=== PATIENT | female | born 1960 | race Caucasian/White ===

== ENCOUNTER 2018-01-22 08:18 | Emergency (ER) | payer MEDICARE, MEDICAID ==
[~2018-01-22] VITALS: Ht 165.1 cm; Wt 77.0 kg
[~2018-01-22 08:18] MED LIST: COMIN IH; FAMO-1 PO; HYDR-3964 PO; TRAZ-89 PO
[2018-01-22 08:26] VITALS: BP 101/67
[2018-01-22 08:49] LABS: CLARITY,URINE CLOUDY (Clear); COLOR,URINE YELLOW (Yellow); GLUCOSE, URINE NEGATIVE (Neg); KETONES,URINE NEGATIVE (Neg); LEUKOCYTE ESTERASE ,URINE LARGE (Neg); NITRITES, URINE POSITIVE (Neg); OCCULT BLOOD,URINE LARGE (Neg); PROTEIN,URINE 30 mg/dl (Neg); UROBILINOGEN,URINE 0.2 E.U/dL (0.2-1.0)
[2018-01-22 08:54] LABS: UA COLLECTION TYPE CLN CATCH MIDSTREAM
[2018-01-22 08:56] LABS: BACTERIA,URINE 2+ /HPF (Neg); MUCUS STRANDS FEW /LPF (Neg); SQUAMOUS EPITHELIAL CELL,UR FEW /LPF (FEW); WBC,URINE 50-100 /HPF (0-4)
[2018-01-22] MEDS ORDERED: SULF1TAB49 PO (09:14)
[2018-01-22] MEDS ORDERED: PHEN-716 PO (09:14)
[2018-01-22] MEDS ORDERED: phenazopyridine 100mg tablet PO ONE (09:25)
== END 2018-01-22 09:53 | disposition home or self-care (01) ==
LOC: ER 08:19
DX: N39.0 Urinary tract infection, site not specified (principal); Z90.49 Acquired absence of other specified parts of digestive tract; Z98.890 Other specified postprocedural states; Z90.710 Acquired absence of both cervix and uterus; Z56.0 Unemployment, unspecified; Z79.899 Other long term (current) drug therapy
CPT/HCPCS: 81001; 87077; 87088; 87186; 99284

== ENCOUNTER 2019-05-25 14:19 | Emergency (ER) | payer MEDICARE, MEDICAID ==
[~2019-05-25] VITALS: Ht 162.6 cm; Wt 59.6 kg
[~2019-05-25 14:19] MED LIST changes: +PHEN-716 PO
[2019-05-25 14:57] LABS: CLARITY,URINE CLOUDY (Clear); COLOR,URINE YELLOW (Yellow); GLUCOSE, URINE NEGATIVE (Neg); KETONES,URINE NEGATIVE (Neg); LEUKOCYTE ESTERASE ,URINE SMALL (Neg); NITRITES, URINE POSITIVE (Neg); OCCULT BLOOD,URINE NEGATIVE (Neg); PH,URINE 5.5 (4.8-8.0); PROTEIN,URINE NEGATIVE (Neg)
[2019-05-25 14:58] LABS: UA COLLECTION TYPE CLN CATCH MIDSTREAM
[2019-05-25 15:03] LABS: MUCUS STRANDS MODERATE /LPF (Neg); SQUAMOUS EPITHELIAL CELL,UR MODERATE /LPF (FEW)
[2019-05-25 15:04] LABS: BACTERIA,URINE 2+ /HPF (Neg); RBC,URINE 0-2 /HPF (0-2); WBC CLUMPS,URINE FEW /HPF (NEGATIVE); WBC,URINE 50-100 /HPF (0-4)
[2019-05-25 15:34] VITALS: BP 143/77
[2019-05-25] MEDS ORDERED: cephalexin 250mg capsule PO ONE (15:55)
[2019-05-25] MEDS ORDERED: HYDROcodone/acetaminophen 10/325mg tab PO ONE (15:55)
[2019-05-25] MEDS ORDERED: CEPH500C5 PO (15:55)
== END 2019-05-25 16:30 | disposition home or self-care (01) ==
LOC: ER 14:20
DX: N39.0 Urinary tract infection, site not specified (principal); M25.552 Pain in left hip; G89.29 Other chronic pain; F17.210 Nicotine dependence, cigarettes, uncomplicated; F12.90 Cannabis use, unspecified, uncomplicated; Z90.49 Acquired absence of other specified parts of digestive tract; Z90.710 Acquired absence of both cervix and uterus; Z98.890 Other specified postprocedural states; Z56.0 Unemployment, unspecified; Z79.2 Long term (current) use of antibiotics; Z79.899 Other long term (current) drug therapy
CPT/HCPCS: 81001; 99283

== ENCOUNTER 2019-10-07 12:49 | Emergency (ER) | payer MEDICARE, MEDICAID ==
[~2019-10-07] VITALS: Ht 162.6 cm; Wt 65.9 kg
[~2019-10-07 12:49] MED LIST changes: +CEPH500C5 PO
[2019-10-07 13:47] LABS: BASOPHILS # (AUTO) 0.1 X10'3 (0-0.2); BASOPHILS % (AUTO) 1.1 % (0-1); EOSINOPHILS # (AUTO) 0.2 X10'3 (0-0.9); EOSINOPHILS % (AUTO) 1.6 % (0-6); HEMATOCRIT 40.1 % (35.0-45.0); HEMOGLOBIN 13.8 g/dl (12.0-16.0); LYMPHOCYTES # (AUTO) 1.6 X10'3 (1.1-4.8); LYMPHOCYTES % (AUTO) 16.8 % (21-51); MEAN CORPUSCULAR HEMOGLOBIN 30.6 PG (27.0-31.0); MEAN CORPUSCULAR HGB CONC 34.4 g/dL (33.0-36.5); MEAN CORPUSCULAR VOLUME 88.8 FL (78-98); MEAN PLATELET VOLUME 7.5 FL (7.4-10.4); MONOCYTES # (AUTO) 0.4 X10'3 (0-0.9); MONOCYTES % (AUTO) 4.7 % (2-12); NEUTROPHILS # (AUTO) 7.1 X10'3 (1.8-7.7); NEUTROPHILS % (AUTO) 75.8 % (42-75); PLATELET COUNT 321 X10'3 (140-440); RED BLOOD COUNT 4.51 X10'6 (4.20-5.60); RED CELL DISTRIBUTION WIDTH 13.2 % (11.5-14.5); WHITE BLOOD COUNT 9.4 X10'3 (4.5-11.0)
[2019-10-07] MEDS ORDERED: ondansetron/PF 4mg/2ml inj IV ONE (13:55)
[2019-10-07] MEDS ORDERED: morphine 4 MG/ML inj SYRINge IV ONE ×2 (13:55→15:55)
[2019-10-07 14:06] LABS: ALANINE AMINOTRANSFERASE 11 U/L (12-78); ALBUMIN 3.7 G/DL (3.4-5.0); ALBUMIN/GLOBULIN RATIO 0.9 (1.1-1.5); ALKALINE PHOSPHATASE 82 IU/L (46-116); ANION GAP 10 (8-16); ASPARTATE AMINO TRANSFERASE 10 U/L (10-37); BILIRUBIN,TOTAL 0.4 MG/DL (0.1-1.0); BLOOD UREA NITROGEN 11 MG/DL (7-18); BUN/CREATININE RATIO 16.4 (6.6-38.0); CALCIUM 9.4 MG/DL (8.5-10.1); CHLORIDE 103 MMOL/L (99-107); CREATININE 0.67 MG/DL (0.40-0.90); GLUCOSE 97 MG/DL (70-104); SODIUM 140 MMOL/L (135-145); TOTAL CARBON DIOXIDE 26.6 MMOL/L (24-32); TOTAL PROTEIN 7.7 G/DL (6.4-8.2); eGFR 89 ML/MIN
[2019-10-07 14:09] LABS: POTASSIUM 4.2 MMOL/L (3.5-5.1)
[2019-10-07] MEDS ORDERED: iohexol 350MG/ML 100ml bottle IV ONE (14:35)
[2019-10-07] MEDS ORDERED: enoxaparin 100mg/ml syringe SUBCUT ONE (15:15)
[2019-10-07] MEDS ORDERED: ketorolac trometh. 30mg/ml inj. IV ONE (15:20)
--- NOTE | 2019-10-07 15:25 | NUR ---
Dr Hernandez made aware of patient stating 10/10 right chest pain, burning, with increased shortness of breath, SPO2 96% on room air, placed on O2 2L via NC for comfort.
[2019-10-07] MEDS ORDERED: ENOX100S3 SQ (15:56)
[2019-10-07 16:12] VITALS: BP 130/72
== END 2019-10-07 16:18 | disposition home or self-care (01) ==
LOC: ER 12:50
DX: I26.99 Other pulmonary embolism without acute cor pulmonale (principal); R91.8 Other nonspecific abnormal finding of lung field; G89.29 Other chronic pain; F17.200 Nicotine dependence, unspecified, uncomplicated; F12.90 Cannabis use, unspecified, uncomplicated; Z90.49 Acquired absence of other specified parts of digestive tract; Z90.710 Acquired absence of both cervix and uterus; Z56.0 Unemployment, unspecified; Z98.890 Other specified postprocedural states; Z79.899 Other long term (current) drug therapy
CPT/HCPCS: 36415; 71045; 71275; 80053; 84484; 85025; 93005; 96372; 96374; 96375; 96376; 99284; J1885; J2270; J2405; Q9967; J1650

== ENCOUNTER 2020-03-13 09:06 | Emergency (ER) | payer MEDICARE, MEDICAID ==
[~2020-03-13] VITALS: Ht 162.6 cm; Wt 53.0 kg
[2020-03-13 11:06] LABS: BASOPHILS # (AUTO) 0.1 X10'3 (0-0.2); BASOPHILS % (AUTO) 0.8 % (0-1); EOSINOPHILS # (AUTO) 0.2 X10'3 (0-0.9); EOSINOPHILS % (AUTO) 2.4 % (0-6); HEMATOCRIT 23.9 % (35.0-45.0); HEMOGLOBIN 8.1 g/dl (12.0-16.0); LYMPHOCYTES # (AUTO) 0.7 X10'3 (1.1-4.8); LYMPHOCYTES % (AUTO) 7.6 % (21-51); MEAN CORPUSCULAR HEMOGLOBIN 31.2 PG (27.0-31.0); MEAN CORPUSCULAR VOLUME 91.9 FL (78-98); MEAN PLATELET VOLUME 6.3 FL (7.4-10.4); MONOCYTES # (AUTO) 0.6 X10'3 (0-0.9); MONOCYTES % (AUTO) 6.8 % (2-12); NEUTROPHILS # (AUTO) 7.7 X10'3 (1.8-7.7); NEUTROPHILS % (AUTO) 82.4 % (42-75); PLATELET COUNT 328 X10'3 (140-440); WHITE BLOOD COUNT 9.4 X10'3 (4.5-11.0)
--- NOTE | 2020-03-13 11:16 | NUR ---
PT'S CALL LIGHT WAS ON, CHECKED ON PT AND SHE WAS SLEEPING, ROOM LIGHTS DIMMED.
[2020-03-13 11:18] LABS: ALANINE AMINOTRANSFERASE 11 U/L (12-78); ALBUMIN 2.3 G/DL (3.4-5.0); ALBUMIN/GLOBULIN RATIO 0.5 (1.1-1.5); ALKALINE PHOSPHATASE 132 IU/L (46-116); ANION GAP 6 (8-16); ASPARTATE AMINO TRANSFERASE 12 U/L (10-37); BILIRUBIN,TOTAL 0.3 MG/DL (0.1-1.0); BLOOD UREA NITROGEN 11 MG/DL (7-18); BUN/CREATININE RATIO 16.9 (6.6-38.0); CALCIUM 9.3 MG/DL (8.5-10.1); CHLORIDE 98 MMOL/L (99-107); CREATININE 0.65 MG/DL (0.40-0.90); GLUCOSE 96 MG/DL (70-104); POTASSIUM 3.8 MMOL/L (3.5-5.1); SODIUM 132 MMOL/L (135-145); TOTAL CARBON DIOXIDE 28.4 MMOL/L (24-32); TOTAL PROTEIN 6.9 G/DL (6.4-8.2); eGFR > 90 ML/MIN
[2020-03-13] MEDS ORDERED: acetaminophen w/codeine (30MG) #3 tablet PO ONE (12:05)
[2020-03-13 12:06] LABS: CLARITY,URINE CLOUDY (Clear); COLOR,URINE ORANGE (Yellow); UA COLLECTION TYPE CLN CATCH MIDSTREAM
[2020-03-13 12:12] LABS: SQUAMOUS EPITHELIAL CELL,UR FEW /LPF (FEW); WBC,URINE TNTC /HPF (0-4)
[2020-03-13 12:13] LABS: BACTERIA,URINE 4+ /HPF (Neg)
[2020-03-13 13:01] VITALS: BP 107/61
== END 2020-03-13 12:30 | disposition home or self-care (01) ==
LOC: ER 09:07
DX: C34.90 Malignant neoplasm of unspecified part of unspecified bronchus or lung (principal); G89.29 Other chronic pain; F12.90 Cannabis use, unspecified, uncomplicated; Z56.0 Unemployment, unspecified; Z90.49 Acquired absence of other specified parts of digestive tract; Z98.890 Other specified postprocedural states; Z90.710 Acquired absence of both cervix and uterus; Z79.899 Other long term (current) drug therapy; Z92.21 Personal history of antineoplastic chemotherapy
CPT/HCPCS: 36415; 71045; 80053; 81001; 85025; 87088; 87186; 99284

== ENCOUNTER 2020-11-05 14:24 | Emergency (ER) | payer MEDICARE, MEDICAID ==
[~2020-11-05] VITALS: Ht 162.6 cm; Wt 50.0 kg
[~2020-11-05 14:24] MED LIST changes: -CEPH500C5 PO
[2020-11-05] MEDS ORDERED: ketorolac trometh. 30mg/ml inj. IM ONE (15:50)
[2020-11-05 16:12] VITALS: BP 127/92
== END 2020-11-05 16:06 | disposition home or self-care (01) ==
LOC: ER 14:24
DX: M25.511 Pain in right shoulder (principal); G89.29 Other chronic pain; F12.90 Cannabis use, unspecified, uncomplicated; Z90.49 Acquired absence of other specified parts of digestive tract; Z90.710 Acquired absence of both cervix and uterus; Z56.0 Unemployment, unspecified
CPT/HCPCS: 73030; 96372; 99284; J1885

== ENCOUNTER 2022-06-05 10:02 | Emergency (ER) | payer BC, MEDICAID ==
[~2022-06-05] VITALS: Ht 162.6 cm; Wt 59.1 kg
[2022-06-05 10:10] VITALS: BP 121/87
[2022-06-05] MEDS ORDERED: hydrOXYzine 25 MG tablet PO ONE (11:10)
[2022-06-05] MEDS ORDERED: triamcinolone acetonide 40mg/ml inj IM ONE (11:10)
[2022-06-05] MEDS ORDERED: PRED10TA PO (12:17)
[2022-06-05] MEDS ORDERED: KEN0.1O TP (12:17)
== END 2022-06-05 12:50 | disposition home or self-care (01) ==
LOC: ER 10:03
DX: L50.8 Other urticaria (principal); G89.29 Other chronic pain; M54.9 Dorsalgia, unspecified; Z90.49 Acquired absence of other specified parts of digestive tract; F12.10 Cannabis abuse, uncomplicated; Z56.0 Unemployment, unspecified; Z79.899 Other long term (current) drug therapy
CPT/HCPCS: 96372; 99283; J3301; Q0177

== ENCOUNTER 2022-06-30 02:07 | Emergency (ER) | payer BC, MEDICAID ==
[~2022-06-30] VITALS: Ht 162.6 cm; Wt 57.7 kg
[~2022-06-30 02:07] MED LIST changes: +PRED10TA PO
[2022-06-30] MEDS ORDERED: LIDOcaine/PRILOcaine 5gm cream TP ONE (03:20)
[2022-06-30] MEDS ORDERED: diphenhydrAMINE 50 mg/ml inj IM ONE (03:20)
[2022-06-30] MEDS ORDERED: triamcinolone acetonide 40mg/ml inj IM ONE (03:20)
[2022-06-30] MEDS ORDERED: PRED20TA PO (03:21)
[2022-06-30] MEDS ORDERED: LIDO30CR TOP (03:21)
[2022-06-30] MEDS ORDERED: TRIA15CR61 TOP (03:27)
[2022-06-30 03:38] VITALS: BP 123/66
== END 2022-06-30 03:39 | disposition home or self-care (01) ==
LOC: ER 02:07
DX: R21 Rash and other nonspecific skin eruption (principal); G89.29 Other chronic pain; M54.50 Low back pain, unspecified; F17.200 Nicotine dependence, unspecified, uncomplicated; Z98.890 Other specified postprocedural states; Z90.49 Acquired absence of other specified parts of digestive tract; Z90.710 Acquired absence of both cervix and uterus; Z56.0 Unemployment, unspecified
CPT/HCPCS: 96372; 99284; J1200; J3301

== ENCOUNTER 2022-11-06 05:29 | Emergency (ER) | payer BC, MEDICAID ==
[~2022-11-06] VITALS: Ht 165.1 cm; Wt 58.2 kg
[~2022-11-06 05:29] MED LIST changes: +LIDO30CR TOP
[2022-11-06 06:07] LABS: BASOPHILS # (AUTO) 0.1 X10'3 (0-0.2); BASOPHILS % (AUTO) 1.5 % (0-1); EOSINOPHILS # (AUTO) 0.4 X10'3 (0-0.9); EOSINOPHILS % (AUTO) 4.3 % (0-6); HEMATOCRIT 37.3 % (35.0-45.0); HEMOGLOBIN 12.3 g/dl (12.0-16.0); LYMPHOCYTES # (AUTO) 0.9 X10'3 (1.1-4.8); LYMPHOCYTES % (AUTO) 11.1 % (21-51); MEAN CORPUSCULAR HEMOGLOBIN 31.6 PG (27.0-31.0); MEAN CORPUSCULAR HGB CONC 32.9 g/dL (33.0-36.5); MEAN CORPUSCULAR VOLUME 95.9 FL (78-98); MEAN PLATELET VOLUME 6.5 FL (7.4-10.4); MONOCYTES # (AUTO) 0.4 X10'3 (0-0.9); MONOCYTES % (AUTO) 5.1 % (2-12); NEUTROPHILS # (AUTO) 6.5 X10'3 (1.8-7.7); PLATELET COUNT 258 X10'3 (140-440); RED BLOOD COUNT 3.89 X10'6 (4.20-5.60); WHITE BLOOD COUNT 8.3 X10'3 (4.5-11.0)
[2022-11-06 06:42] LABS: ALANINE AMINOTRANSFERASE 15 U/L (12-78); ALBUMIN 3.4 G/DL (3.4-5.0); ALKALINE PHOSPHATASE 165 IU/L (46-116); ANION GAP 7 (8-16); ASPARTATE AMINO TRANSFERASE 20 U/L (10-37); BILIRUBIN,TOTAL 0.3 MG/DL (0.1-1.0); BLOOD UREA NITROGEN 17 MG/DL (7-18); BUN/CREATININE RATIO 28.3 (6.6-38.0); CALCIUM 9.1 MG/DL (8.5-10.1); CHLORIDE 101 MMOL/L (99-107); GLUCOSE 110 MG/DL (70-104); MAGNESIUM 1.9 MG/DL (1.5-2.4); POTASSIUM 3.9 MMOL/L (3.5-5.1); SODIUM 136 MMOL/L (135-145); TOTAL CARBON DIOXIDE 28.3 MMOL/L (24-32); TOTAL PROTEIN 6.8 G/DL (6.4-8.2); eGFR > 90 ML/MIN
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
[2022-11-06] MEDS ORDERED: ondansetron/PF 4mg/2ml inj IV ONE (07:20)
[2022-11-06] MEDS ORDERED: pantoprazole 40 MG vial IV ONE (07:20)
[2022-11-06] MEDS ORDERED: normal saline 1000ML IV soln IVB ONE (07:20)
[2022-11-06] MEDS ORDERED: pantoprazole 40MG/NS 100ML BAG 100 ML IV ONE (07:35)
[2022-11-06] MEDS ORDERED: acetaminophen 325mg tablet PO ONE (10:15)
[2022-11-06] MEDS ORDERED: NORMAL SALINE IV ONE ×2 (10:50→11:00)
[2022-11-06] MEDS ORDERED: DEXAMETHASONE IV ONE ×2 (10:50→11:00)
[2022-11-06] MEDS ORDERED: GADOTERATE MEGLUMINE 7.5 MMOL/15 ML VIAL IV ONE (10:58)
[2022-11-06] MEDS ORDERED: dexamethasone sod phosphate 10mg/ml inj IV STA (13:32)
--- NOTE | 2022-11-06 16:58 | NUR ---
PT RESTING IN POSITION OF COMFORT. NO COMPLAINTS. RESP EVEN UNLABORED. AO4.
--- NOTE | 2022-11-06 18:24 | NUR ---
report to vijaya montanez for continuation of care.
[2022-11-06] MEDS ORDERED: NORMAL SALINE IV SCH (20:00)
[2022-11-06] MEDS ORDERED: DEXAMETHASONE IV SCH (20:00)
[2022-11-06] MEDS ORDERED: HYDROcodone/acetaminophen 5mg/325mg tablet PO ONE (21:45)
--- NOTE | 2022-11-07 02:00 | NUR ---
Family in room with patient. Patient awake and alert, conversational. Family updated awaiting bed at [facility]. Patient denies other needs at this time. Patient maintained on cardiac, spo2, nibp monitoring.
--- NOTE | 2022-11-07 04:53 | NUR ---
Patient sleeping at this time, no distress noted. Patient maintained on cardiac, respiratory, nibp monitoring.
--- NOTE | 2022-11-07 05:37 | NUR ---
Report called to Martin at [facility] for bed 8N 11. Pending firm departure time with reach.
[2022-11-07] MEDS ORDERED: HYDROcodone/acetaminophen 5mg/325mg tablet PO ONE (05:55)
[2022-11-07] MEDS ORDERED: dexamethasone sod phosphate 10mg/ml inj IV STA (06:56)
--- NOTE | 2022-11-07 07:00 | NUR ---
pt is awake ao4 resp even unlabored. skin w/d/i pink. pt has no complaints at this time. pt stated she can feel the mass in her head.
[2022-11-07] MEDS ORDERED: ondansetron/PF 4mg/2ml inj IV ONE (09:45)
[2022-11-07 09:57] VITALS: BP 119/58
--- NOTE | 2022-11-07 10:00 | NUR ---
REPORT CALLED [facility]
--- NOTE | 2022-11-07 10:15 | NUR ---
Pt rolled out by [facility] RNs and pt with belongings at registration for friend/family to lease picker purse per pt request.
== END 2022-11-07 10:15 | disposition short-term general hospital (02) ==
LOC: ER 05:30
DX: C79.31 Secondary malignant neoplasm of brain (principal); Z20.822 Contact with and (suspected) exposure to COVID-19; G89.29 Other chronic pain; M54.9 Dorsalgia, unspecified; Z90.49 Acquired absence of other specified parts of digestive tract; Z98.890 Other specified postprocedural states
CPT/HCPCS: 36415; 70553; 80053; 83735; 83880; 84484; 85025; 87811; 96365; 96367; 96375; 96376; 99285; A9575; C9113; J1100; J2405; J7030

== ENCOUNTER 2023-06-03 21:19 | Emergency (ER) | payer BC, MEDICAID ==
[~2023-06-03] VITALS: Ht 162.6 cm; Wt 37.3 kg
[~2023-06-03 21:19] MED LIST changes: +AZI25OT PO; -FAMO-1 PO; -LIDO30CR TOP; +MORP30TA6 PO; +PANT40TA54 PO; -PHEN-716 PO; -PRED10TA PO; -TRAZ-89 PO
[2023-06-03 21:24] VITALS: TEMP 97.9
[2023-06-03] MEDS ORDERED: ondansetron 4mg rapidly disintigrating tab PO ONE (23:45)
[2023-06-03] MEDS ORDERED: HYDROcodone/acetaminophen 10/325mg tab PO ONE (23:45)
[2023-06-03] MEDS ORDERED: acetaminophen 325mg tablet PO ONE (23:45)
[2023-06-04 01:04] LABS: BASOPHILS % (AUTO) 0.4 % (0-1); EOSINOPHILS # (AUTO) 0.1 X10'3 (0-0.9); EOSINOPHILS % (AUTO) 0.7 % (0-6); HEMATOCRIT 30.1 % (35.0-45.0); HEMOGLOBIN 10.1 g/dl (12.0-16.0); LYMPHOCYTES # (AUTO) 0.4 X10'3 (1.1-4.8); LYMPHOCYTES % (AUTO) 4.2 % (21-51); MEAN CORPUSCULAR HEMOGLOBIN 31.4 PG (27.0-31.0); MEAN CORPUSCULAR HGB CONC 33.6 g/dL (33.0-36.5); MEAN CORPUSCULAR VOLUME 93.4 FL (78-98); MEAN PLATELET VOLUME 7.4 FL (7.4-10.4); MONOCYTES # (AUTO) 0.7 X10'3 (0-0.9); MONOCYTES % (AUTO) 6.9 % (2-12); NEUTROPHILS # (AUTO) 8.7 X10'3 (1.8-7.7); NEUTROPHILS % (AUTO) 87.8 % (42-75); PLATELET COUNT 204 X10'3 (140-440); RED BLOOD COUNT 3.22 X10'6 (4.20-5.60); WHITE BLOOD COUNT 9.9 X10'3 (4.5-11.0)
[2023-06-04 01:13] LABS: ALANINE AMINOTRANSFERASE 13 U/L (12-78); ALBUMIN 2.8 G/DL (3.4-5.0); ALBUMIN/GLOBULIN RATIO 0.7 (1.1-1.5); ALKALINE PHOSPHATASE 79 IU/L (46-116); ANION GAP 6 (8-16); ASPARTATE AMINO TRANSFERASE 14 U/L (10-37); BILIRUBIN,TOTAL 0.3 MG/DL (0.1-1.0); BLOOD UREA NITROGEN 19 MG/DL (7-18); BUN/CREATININE RATIO 27.1 (10.0-20.0); CALCIUM 9.5 MG/DL (8.5-10.1); CHLORIDE 94 MMOL/L (99-107); GLUCOSE 85 MG/DL (70-104); LIPASE 53 U/L (73-393); MAGNESIUM 1.7 MG/DL (1.5-2.4); SODIUM 132 MMOL/L (135-145); TOTAL CARBON DIOXIDE 32.1 MMOL/L (24-32); TOTAL PROTEIN 6.6 G/DL (6.4-8.2); eGFR 84 ML/MIN
[2023-06-04 01:21] LABS: CLARITY,URINE CLEAR (Clear); COLOR,URINE YELLOW (Yellow); GLUCOSE, URINE NEGATIVE (Neg); KETONES,URINE NEGATIVE (Neg); LEUKOCYTE ESTERASE ,URINE SMALL (Neg); NITRITES, URINE NEGATIVE (Neg); OCCULT BLOOD,URINE NEGATIVE (Neg); PROTEIN,URINE NEGATIVE (Neg); UROBILINOGEN,URINE 0.2 E.U/dL (0.2-1.0)
[2023-06-04 01:28] LABS: UA COLLECTION TYPE CLN CATCH MIDSTREAM
[2023-06-04 01:38] LABS: BACTERIA,URINE FEW /HPF (Neg)
[2023-06-04 01:39] LABS: MUCUS STRANDS FEW /LPF (Neg); SQUAMOUS EPITHELIAL CELL,UR MODERATE /LPF (FEW); TRANSITIONAL EPI CELLS,URINE MODERATE /HPF
[2023-06-04] MEDS ORDERED: oxyCODONE IR 5mg (immed. release) tablet PO ONE (01:40)
[2023-06-04] MEDS ORDERED: HYDR-3973 PO (01:45)
[2023-06-04 01:52] LABS: WBC CLUMPS,URINE FEW /HPF (NEGATIVE)
[2023-06-04 02:09] VITALS: BP 105/75; PULSE 62; RESP 16; O2SAT 98
== END 2023-06-04 02:02 | disposition home or self-care (01) ==
LOC: ER 21:20
DX: R10.84 Generalized abdominal pain (principal); G89.29 Other chronic pain; Z79.2 Long term (current) use of antibiotics; Z79.899 Other long term (current) drug therapy; Z98.890 Other specified postprocedural states; Z04.9 Encounter for examination and observation for unspecified reason; Z90.710 Acquired absence of both cervix and uterus
CPT/HCPCS: 36415; 80053; 81001; 83690; 83735; 85025; 85610; 87077; 87088; 87186; 99284

== ENCOUNTER 2024-01-01 12:56 | Emergency (ER) | payer BC, MEDICAID ==
[~2024-01-01] VITALS: Ht 162.6 cm; Wt 41.4 kg
[~2024-01-01 12:56] MED LIST changes: -AZI25OT PO; +CIPR-259 PO; +DOCU100C40 PO; +GABA300C PO; -HYDR-3964 PO; +HYDR-3972 PO; +LIDO700A47 TOP; -MORP30TA6 PO; -PANT40TA54 PO
[2024-01-01 13:08] VITALS: BP 109/70; PULSE 68; TEMP 98; O2SAT 97
[2024-01-01 13:09] LABS: BASOPHILS % (AUTO) 0.4 % (0-1); EOSINOPHILS # (AUTO) 0.1 X10'3 (0-0.9); HEMATOCRIT 32.5 % (35.0-45.0); HEMOGLOBIN 10.9 g/dl (12.0-16.0); LYMPHOCYTES # (AUTO) 0.6 X10'3 (1.1-4.8); MEAN CORPUSCULAR HEMOGLOBIN 30.9 PG (27.0-31.0); MEAN CORPUSCULAR HGB CONC 33.5 g/dL (33.0-36.5); MEAN CORPUSCULAR VOLUME 92.2 FL (78-98); MEAN PLATELET VOLUME 6.5 FL (7.4-10.4); MONOCYTES # (AUTO) 0.5 X10'3 (0-0.9); MONOCYTES % (AUTO) 5.6 % (2-12); NEUTROPHILS # (AUTO) 7.1 X10'3 (1.8-7.7); PLATELET COUNT 175 X10'3 (140-440); RED BLOOD COUNT 3.53 X10'6 (4.20-5.60); RED CELL DISTRIBUTION WIDTH 13.7 % (11.5-14.5); WHITE BLOOD COUNT 8.2 X10'3 (4.5-11.0)
[2024-01-01 13:35] LABS: ALANINE AMINOTRANSFERASE 16 U/L (12-78); ALBUMIN 3.1 G/DL (3.4-5.0); ALBUMIN/GLOBULIN RATIO 0.9 (1.1-1.5); ALKALINE PHOSPHATASE 84 IU/L (46-116); ANION GAP 5 (8-16); ASPARTATE AMINO TRANSFERASE 17 U/L (10-37); BILIRUBIN,TOTAL 0.4 MG/DL (0.1-1.0); BLOOD UREA NITROGEN 13 MG/DL (7-18); BUN/CREATININE RATIO 18.3 (10.0-20.0); CALCIUM 8.7 MG/DL (8.5-10.1); CHLORIDE 104 MMOL/L (99-107); CREATININE 0.71 MG/DL (0.40-0.90); GLUCOSE 142 MG/DL (70-104); POTASSIUM 4.1 MMOL/L (3.5-5.1); PRO BRAIN NATRIURETIC PEPTIDE 1750 PG/ML (0-125); SODIUM 141 MMOL/L (135-145); TOTAL PROTEIN 6.5 G/DL (6.4-8.2); eCRCL 52 ML/MIN; eGFR 83 ML/MIN
[2024-01-01 17:10] VITALS: RESP 18
[2024-01-01] MEDS: furosemide 10 MG/1 ML 10ml inj IV ONE (17:10)
[2024-01-01] MEDS: morphine 2 MG/ML inj. syringe IV PRN (17:10)
[2024-01-01] MEDS ORDERED: AMOX-117 PO (18:11)
== END 2024-01-01 18:14 | disposition home or self-care (01) ==
LOC: ER 12:56
DX: R60.0 Localized edema (principal); R06.02 Shortness of breath; R05.9 Cough, unspecified
CPT/HCPCS: 36415; 71045; 80053; 83880; 84484; 85025; 87811; 93005; 96374; 96375; 99285; J1940; J2270

== ENCOUNTER 2024-03-13 18:06 | Emergency (ER) | payer BC, MEDICAID ==
[~2024-03-13] VITALS: Ht 162.6 cm; Wt 41.6 kg
[2024-03-13 18:28] VITALS: BP 113/56; PULSE 85; TEMP 98; O2SAT 98
[2024-03-13] MEDS ORDERED: ketorolac trometh inj. 60 MG/2 ML VIAL IM ONE (19:35)
[2024-03-13 19:48] VITALS: RESP 16
[2024-03-13] MEDS: ketorolac tromethamine 15mg/ml inj. IM ONE (19:48)
== END 2024-03-13 20:01 | disposition left against medical advice (07) ==
LOC: ER 18:07
DX: M25.551 Pain in right hip (principal); I50.9 Heart failure, unspecified; J45.909 Unspecified asthma, uncomplicated; I27.20 Pulmonary hypertension, unspecified; G89.29 Other chronic pain; M54.9 Dorsalgia, unspecified; Z90.49 Acquired absence of other specified parts of digestive tract; Z90.710 Acquired absence of both cervix and uterus; F12.90 Cannabis use, unspecified, uncomplicated; Z85.841 Personal history of malignant neoplasm of brain; Z85.118 Personal history of other malignant neoplasm of bronchus and lung; G62.9 Polyneuropathy, unspecified
CPT/HCPCS: 73502; 96372; 99284; J1885

== ENCOUNTER 2024-06-04 10:26 | Emergency (ER) | payer BC, MEDICAID ==
[~2024-06-04] VITALS: Ht 162.6 cm; Wt 39.4 kg
[2024-06-04 10:59] VITALS: BP 117/69; PULSE 80; RESP 14; O2SAT 90
[2024-06-04 11:42] LABS: BASOPHILS # (AUTO) 0.1 X10'3 (0-0.2); BASOPHILS % (AUTO) 0.9 % (0-1); EOSINOPHILS # (AUTO) 0.1 X10'3 (0-0.9); EOSINOPHILS % (AUTO) 0.9 % (0-6); HEMATOCRIT 32.4 % (35.0-45.0); HEMOGLOBIN 10.8 g/dl (12.0-16.0); LYMPHOCYTES # (AUTO) 0.1 X10'3 (1.1-4.8); MEAN CORPUSCULAR HEMOGLOBIN 29.9 PG (27.0-31.0); MEAN CORPUSCULAR HGB CONC 33.2 g/dL (33.0-36.5); MEAN CORPUSCULAR VOLUME 90.1 FL (78-98); MEAN PLATELET VOLUME 6.9 FL (7.4-10.4); MONOCYTES # (AUTO) 0.5 X10'3 (0-0.9); NEUTROPHILS # (AUTO) 6.4 X10'3 (1.8-7.7); NEUTROPHILS % (AUTO) 89.2 % (42-75); PLATELET COUNT 232 X10'3 (140-440); RED CELL DISTRIBUTION WIDTH 15.6 % (11.5-14.5); WHITE BLOOD COUNT 7.2 X10'3 (4.5-11.0)
[2024-06-04 12:06] LABS: ANION GAP 3 (8-16); BLOOD UREA NITROGEN 14 MG/DL (7-18); BUN/CREATININE RATIO 19.4 (10.0-20.0); CHLORIDE 97 MMOL/L (99-107); CREATININE 0.72 MG/DL (0.40-0.90); GLUCOSE 87 MG/DL (70-104); POTASSIUM 3.9 MMOL/L (3.5-5.1); SODIUM 133 MMOL/L (135-145); TOTAL CARBON DIOXIDE 33.4 MMOL/L (24-32); eCRCL 48 ML/MIN
[2024-06-04 12:07] LABS: ALBUMIN 3.3 G/DL (3.4-5.0); CALCIUM 9.1 MG/DL (8.5-10.1); PRO BRAIN NATRIURETIC PEPTIDE 728 PG/ML (0-125); eGFR 81 ML/MIN
[2024-06-04 13:01] VITALS: TEMP 97.2
== END 2024-06-04 13:02 | disposition left against medical advice (07) ==
LOC: ER 10:27
DX: R04.2 Hemoptysis (principal); J02.9 Acute pharyngitis, unspecified; R07.89 Other chest pain; Z53.21 Procedure and treatment not carried out due to patient leaving prior to being seen by health care provider
CPT/HCPCS: 36415; 71046; 80048; 83605; 83880; 85025; 87040; 93005

== ENCOUNTER 2024-08-14 12:29 | Emergency (ER) | payer BC, MEDICAID ==
[~2024-08-14] VITALS: Ht 162.6 cm; Wt 43.2 kg
[2024-08-14 12:30] VITALS: BP 130/70; PULSE 80; RESP 16; O2SAT 97
[2024-08-14 12:41] VITALS: TEMP 98
== END 2024-08-14 13:07 | disposition home or self-care (01) ==
LOC: ER 12:29
DX: S01.01XD Laceration without foreign body of scalp, subsequent encounter (principal); F12.90 Cannabis use, unspecified, uncomplicated; I11.0 Hypertensive heart disease with heart failure; I50.9 Heart failure, unspecified; J45.909 Unspecified asthma, uncomplicated; G89.29 Other chronic pain; M54.9 Dorsalgia, unspecified; G62.9 Polyneuropathy, unspecified; Z79.899 Other long term (current) drug therapy; Z90.49 Acquired absence of other specified parts of digestive tract; Z90.710 Acquired absence of both cervix and uterus; Z56.0 Unemployment, unspecified; Z85.118 Personal history of other malignant neoplasm of bronchus and lung; X58.XXXD Exposure to other specified factors, subsequent encounter
CPT/HCPCS: 99281

== ENCOUNTER 2025-06-26 16:39 | Emergency (ER) | payer OTHER, MEDICAID ==
[~2025-06-26] VITALS: Ht 162.6 cm; Wt 43.0 kg
[2025-06-26 18:15] VITALS: BP 104/60; PULSE 73; RESP 18; TEMP 97.5; O2SAT 98
--- NOTE | 2025-06-26 18:15 | RADIOLOGY REPORT ---
Indication: NECK PAIN Technique: DI CERVICAL SPINE LTDCSPINE LTD Comparison: None FINDINGS/IMPRESSION: Cervical vertebral body heights maintained. Moderate multilevel disc space narrowing most pronounced at C4-5.2 mm retrolisthesis C4 upon C5. Anterior osteophytosis at C4-5. No prevertebral edema. Mode rate facet hypertrophic changes. Occipital craniotomy
== END 2025-06-26 18:44 | disposition left against medical advice (07) ==
LOC: ER 16:41
DX: M54.2 Cervicalgia (principal); Z53.21 Procedure and treatment not carried out due to patient leaving prior to being seen by health care provider
CPT/HCPCS: 72040

== ENCOUNTER 2025-08-23 13:57 | Emergency (ER) | payer OTHER, MEDICAID ==
[~2025-08-23] VITALS: Ht 162.6 cm; Wt 44.5 kg
[2025-08-23 14:00] VITALS: TEMP 98
[2025-08-23 14:09] VITALS: BP 128/89; PULSE 74; RESP 15; O2SAT 97
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
== END 2025-08-23 14:26 | disposition home or self-care (01) ==
LOC: ER 13:57
DX: Z02.89 Encounter for other administrative examinations (principal); J45.909 Unspecified asthma, uncomplicated; I50.9 Heart failure, unspecified; G89.29 Other chronic pain; G62.9 Polyneuropathy, unspecified; F12.90 Cannabis use, unspecified, uncomplicated; Z85.118 Personal history of other malignant neoplasm of bronchus and lung; Z85.841 Personal history of malignant neoplasm of brain; Z86.018 Personal history of other benign neoplasm; Z90.49 Acquired absence of other specified parts of digestive tract; Z90.710 Acquired absence of both cervix and uterus; Z56.0 Unemployment, unspecified
CPT/HCPCS: 99284